=== PATIENT | male | born 1965 | race Hispanic/Latino ===

== ENCOUNTER → 2024-02-17 | Day surgery (SDC) | payer OTHER ==
[~2024-02-17] MED LIST: EMERGEN-C 1,01000 MG PO; GLUCOSAMINE &1 EACH PO; LIDOCAINE HCL 2% LOCAL INJ 5 ML SDV VIAL INJ ONE; LIPITOR10 MG PO; METOCLOPRAMIDE HCL 10 MG/2ML VIAL ONE; MIDAZOLAM HCL 2 MG/2 ML VIAL ONE; OLMESARTAN-HCT1 EAC2 PO; PROPOFOL IV EMULSION 10 MG/ML 20 ML VIAL ONE; REPAGLINIDE0.5 MG PO
[2024-02-17] MEDS: LACTATED RINGER'S 1,000 ML ONE (09:47)
[2024-02-17 11:45] VITALS: TEMP 97.8
[2024-02-17 12:00] VITALS: BP 116/78; PULSE 52; RESP 18; O2SAT 99
== END | disposition home or self-care (01) ==
LOC: OR 09:10
PROVIDERS: ATTEND Internal Medicine Gastroenterology
DX: Z12.11 Encounter for screening for malignant neoplasm of colon (principal); D12.2 Benign neoplasm of ascending colon; D12.5 Benign neoplasm of sigmoid colon; K57.30 Diverticulosis of large intestine without perforation or abscess without bleeding; K64.8 Other hemorrhoids; E11.9 Type 2 diabetes mellitus without complications; I10 Essential (primary) hypertension; E78.5 Hyperlipidemia, unspecified; E66.01 Morbid (severe) obesity due to excess calories; Z79.84 Long term (current) use of oral hypoglycemic drugs; Z79.899 Other long term (current) drug therapy
CPT/HCPCS: 36415; 45385; 82948; J2001; J2250; J2704; J2765; J7121; 45378

== ENCOUNTER 2024-03-02 10:02 | Emergency (ER) | payer OTHER ==
[~2024-03-02] VITALS: Ht 172.7 cm; Wt 91.6 kg
[~2024-03-02 10:02] MED LIST changes: -LIDOCAINE HCL 2% LOCAL INJ 5 ML SDV VIAL INJ ONE; -METOCLOPRAMIDE HCL 10 MG/2ML VIAL ONE; -MIDAZOLAM HCL 2 MG/2 ML VIAL ONE; -PROPOFOL IV EMULSION 10 MG/ML 20 ML VIAL ONE
[2024-03-02 10:09] VITALS: PULSE 52; RESP 16; TEMP 97.1; O2SAT 100
[2024-03-02] MEDS ORDERED: AMOX TR-K CLV1 EAC2 PO (10:21)
== END 2024-03-02 10:44 | disposition home or self-care (01) ==
LOC: ER 10:09
DX: K02.9 Dental caries, unspecified (principal); E11.9 Type 2 diabetes mellitus without complications; E78.5 Hyperlipidemia, unspecified
CPT/HCPCS: 99283